=== PATIENT | female | born 1985 | race Caucasian/White ===

== ENCOUNTER 2023-11-02 07:16 | Outpatient (REF) | payer OTHER, SELFPAY ==
[2023-11-02 07:48] LABS: Basophils Percent Auto 0.5 % (0-2); Eosinophils Absolute Auto 0.1 X10*3/uL (0.0-0.4); Eosinophils Percent Auto 1.6 % (0-4); Hematocrit 41.2 % (37.0-47.0); Hemoglobin 13.7 g/dl (12.0-16.0); Imm Gran Abs Auto 0.02 X10*3/uL (0.00-0.03); Imm Gran Pct Auto 0.2 % (0.0-0.4); Lymphocytes Absolute Auto 2.2 X10*3/uL (1.2-4.9); Lymphocytes Percent Auto 26.1 % (20-40); MANUAL DIFF FLAG NO; Mean Corpuscular HGB Conc 33.3 g/dl (31.0-35.0); Mean Corpuscular Hemoglobin 30.6 pg (27.0-33.0); Monocytes Absolute Auto 0.6 X10*3/uL (0.1-1.2); Monocytes Percent Auto 6.5 % (2-11); Neutrophils Absolute Auto 5.5 x10*3/uL (2.0-8.3); Neutrophils Percent Auto 65.1 % (45-73); Platelet Count 248 X10*3/uL (160-400); Red Blood Count 4.48 X10*6/uL (4.20-5.50); Red Cell Distribution Width 12.7 % (11.0-16.0); White Blood Count 8.5 X10*3/uL (4.8-10.8)
[2023-11-02 08:10] LABS: Estimated Average Glucose 108 mg/dL; Hemoglobin A1c % 5.4 % (<6.0)
[2023-11-02 08:19] LABS: Alanine Aminotransferase 12 U/L (0-31); Albumin Level 4.3 g/dL (3.5-5.0); Alkaline Phosphatase 75 U/L (39-117); Anion Gap 12 (12-20); Aspartate Amino Transferase 18 U/L (5-31); Bilirubin Total 0.5 mg/dL (0.0-1.0); Blood Urea Nitrogen 9 mg/dL (9-16); C Reactive Protein 0.29 mg/dL (< or = 0.50); Calcium 9.5 mg/dL (8.4-10.2); Carbon Dioxide 30 mmol/L (22-29); Chloride 104 mmol/L (96-108); Cholesterol 125 mg/dL (<200); Estimated Glomerular Filt Rate > 60; Glucose Random 83 mg/dL (60-115); HDL Cholesterol 67 mg/dL (>40); Iron 86 mcg/dL (30-160); LDL Cholesterol Calculated 54 mg/dL (<100); Magnesium 1.8 mg/dL (1.6-2.6); Percent Iron Saturation 29 % (15-50); Potassium 3.5 mmol/L (3.3-5.1); Sodium 142 mmol/L (135-145); Total Iron Binding Capacity 300 mcg/dL (228-428); Total Protein 7.3 g/dL (6.5-8.0); Triglycerides 22 mg/dL (<150); Unsaturated Iron Binding 214 ug/dL; Uric Acid 5.3 mg/dL (2.4-5.7)
[2023-11-02 08:27] LABS: Erythrocyte Sedimentation Rate 9 MM/HR (0-20)
[2023-11-02 08:34] LABS: Ferritin 46 ng/mL (10-122); Free T4 (Free Thyroxine) 0.77 ng/dL (0.71-1.85); Thyroid Stimulating Hormone 1.85 uIU/mL (0.32-4.0); Vitamin D 25-OH Total 39.2 ng/mL (>30)
[2023-11-02 08:45] LABS: Folate 4.3 ng/mL (> or = 4.0); Vitamin B12 195 pg/mL (200-900)
[2023-11-02 08:50] LABS: HBS Num1 8.99 mIU/mL (0-7.99); HBsAGNum1 0.23 S/CO (0.00-0.99); HIV AB/AG Nonreactive (Nonreactive); HIV Num 1 0.06 S/CO (0.00-0.99); Hepatitis A Antibody IgG Nonreactive (Nonreactive); Hepatitis B Core Antibody Nonreactive (Nonreactive); Hepatitis B Surface Antigen Negative (Negative); ~HepC Num1 0.08 S/CO (0.00-0.79); ~Hepatitis A Antibody IgG 0.52 S/CO (0.00-0.99); ~Hepatitis C Antibody Nonreactive (Nonreactive)
[2023-11-02 08:55] LABS: Syphilis Screen Reactive (Nonreactive)
[2023-11-02 12:07] LABS: HBS Num2 9.83 mIU/mL (0-7.99); HBS Num3 9.77 mIU/mL (0-7.99); ~Hepatitis B Surface Antibody GRAYZONE (Nonreactive)
[2023-11-02 17:45] LABS: CT PCR NOT DETECTED (Not Detect.); NG PCR NOT DETECTED (Not Detect.)
[2023-11-06 08:59] LABS: Lyme Abs Screen <0.90 index
[2023-11-06 17:57] LABS: Cytomegalovirus Ab IgG <0.60 U/mL; Cytomegalovirus Ab IgM <30.00 AU/mL
[2023-11-09 16:43] LABS: Vitamin B1 11 nmol/L (8-30)
== END 2023-11-02 07:17 | disposition home or self-care (01) ==
LOC: HO.LAB 07:16
PROVIDERS: PCP Internal Medicine; Visit Provider Psychiatry & Neurology Psychiatry
DX: F31.30 Bipolar disorder, current episode depressed, mild or moderate severity, unspecified (principal); M79.7 Fibromyalgia; M19.90 Unspecified osteoarthritis, unspecified site
CPT/HCPCS: 36415; 80053; 80061; 82306; 82607; 82728; 82746; 83036; 83540; 83735; 84425; 84439; 84443; 84550; 85025; 85652; 86140; 86592; 86617; 86618; 86644; 86645; 86704; 86706; 86708; 86780; 86803; 87340; 87389; 87491; 87591

== ENCOUNTER 2023-11-06 09:00 | Outpatient (RCR) | payer OTHER, SELFPAY ==
[2023-10-31 11:56] VITALS: BP 118/64; PULSE 58; RESP 18; TEMP 36.3; BMI 36.9
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
--- NOTE | 2023-11-01 08:31 | PC.NURSE ---
Spoke with Dania CALDERON on 11/01/23 at 0820 at [facility]/ Maintenance Methadone she reported Rekha is currently on 97 mg of methadone, she is given take home bottles, she last picked it up on 10/26/23. She should be back in the office on 11/02/23.
--- NOTE | 2023-11-01 15:11 | HO.PHP ---
Client's case has been opened and reviewed in treatment team.
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
--- NOTE | 2023-11-02 12:52 | PC.NURSE ---
Rekha approached program writer around 1247, reported feeling Tired, I've only slept two hours, she reports she has been nodding off in group, I'm too tired to stay awake. She stated I need to sleep, reports she has a two hour bus ride home, stated I'll be back Sunday. Rekha is A/O X4, speech and thought process appeared clear and logical, no safety concerns at this time.
--- NOTE | 2023-11-02 16:12 | PM.EVENT ---
Event Note Date of Service: 11/02/23 Time Spent With Patient Time: Total time managing care of this patient today ____ minutes.
--- NOTE | 2023-11-05 09:39 | HO.PHP ---
This t/w spoke with Rekha over the phone due to not being in program at 9 am. She stated she is in a lot of pain, and that she called staff to let them know. It appears we did not get a call, but she stated she will be in the program tomorrow. No safety concerns.
--- NOTE | 2023-11-06 11:30 | HO.PHPPROGNO ---
Subjective Subjective Date of Service: 11/06/23 Reason For Visit: PTSD,depression,anxiety Interim History: discussed with nursing; pt seen. pt reports back pain . will start anne blackburnda as she haad some trouble getting from pharmacy. no other changes; denies SI or HI. Medication Compliance: Yes Side effects from medications: No Attending Groups: Yes Review of Systems Acute medical concerns: No Mental Status Exam Mental Status Exam Patient Appearance: Appropriate Patient Orientation: Person, Place, Time and Situation Level of Consciousness: Awake Patient Behavior: Appropriate Mood Description: Anxious and Sad Affect Description: Anxious and Sad Patient Cognition Impaired: No Ability to Follow Directions: Good Speech Pattern: Clear and Appropriate Memory Description: Intact Hallucinations: None Delusions: Not Present Thought Process: Intact and Goal Oriented Thought Content: positive for Intact and positive for Goal Oriented Judgement: Fair Diagnostics Vital Signs (24Hr): BMI result Body Mass Index 36.9 Assessment & Plan Patient educated on: diagnosis, medication risk/benefits and therapeutic strategies Informed Consent: further education needed Reason for contiued partial hosp. stay Substantial Risk for: inability to function Certification I certify that partial hospital treatment is medically necessary due to the symptoms and problems resulting from the patient's mental illness and the failure to treat the patient at the partial hospital level of care would likely result in the patient requiring inpatient psychiatric care which could not be prevented at a less intensive level of care. Total time managing care of this patient today _25___ minutes. Discharge Plan Discharge Attending provider: Kati Torres Medications: New cariprazine 1.5 mg capsule 1.5 mg PO DAILY Qty: 30 0RF Continued gabapentin 800 mg tablet 800 mg PO QID albuterol sulfate [Ventolin HFA] 90 mcg/actuation HFA aerosol inhaler 1 puff INHALATION QID PRN (Reason: wheezing) topiramate 50 mg tablet 50 mg PO DAILY duloxetine 30 mg capsule,delayed release(DR/EC) 30 mg PO DAILY duloxetine 60 mg capsule,delayed release(DR/EC) 60 mg PO DAILY No Action methadone [Methadone Intensol] 10 mg/mL Concentrate 97 mg PO DAILY Patient Comments: Spoke with Dania CALDERON on 11/01/23 at 0820 at [facility]/ Maintenance Methadone she reported Rekha is currently on 97 mg of methadone, she is given take home bottles, she last picked it up on 10/26/23. She should be back in the office on 11/02/23. Print Language: Thai
== END 2023-11-06 23:59 | disposition home or self-care (01) ==
LOC: HO.PHPA 09:00
PROVIDERS: Visit Provider Psychiatry & Neurology Psychiatry
DX: F31.60 Bipolar disorder, current episode mixed, unspecified (principal); F41.3 Other mixed anxiety disorders; F43.10 Post-traumatic stress disorder, unspecified; F69 Unspecified disorder of adult personality and behavior; F12.90 Cannabis use, unspecified, uncomplicated; F11.20 Opioid dependence, uncomplicated; Z79.899 Other long term (current) drug therapy
CPT/HCPCS: 90791; 90853

== ENCOUNTER 2025-03-27 12:26 | Emergency (ER) | payer OTHER, SELFPAY ==
--- OUTSIDE RECORDS SUMMARY | 2024-02-12 10:30 | XMS_ITS ---
Author Organization [facility] Address [address] [place] [address] Care Team Providers Care Rubber Mill Tender Name Role Phone SHAUN AMARAL Unavailable [phone] REASON FOR VISIT Annual Exam Social History Sex Assigned At : Social History Observation Description Sex Assigned At Female Encounters Encounter Location Date Provider Diagnosis [facility] [address] [place] [address] [place] [id number] 02/12/2024 SHAUN AMARAL Plan Of Treatment No Information Progress Notes * Lazaro LUQUEaDOB:1985 (39 yo F)Acc No.[id number]:02/12/2024 Progress Notes Patient: Rekha Lockett Provider: Fish Amaral NP :1985 A ge:38 Y S ex:Female Date:02/12/2024 Address:[address], [place], [id number] Subjective: * Chief Complaints: * A nnual Exam Billing Information: * Procedure Codes: * Electronic signature of VEENA AMARAL NP on 03/27/2025 at 02:32 PM EST Sign off status: Pending * Provider: Fish Amaral NP Date: Generated for Sumii jasmyne/Kat/eTransmitting on: 05/27/2024 02:32 PM EST
--- OUTSIDE RECORDS SUMMARY | 2024-05-29 07:45 | XMS_ITS ---
Author Organization [facility] Address [address] [place] [address] Care Team Providers Care Urban Forester Name Role Phone JUN GROSS Unavailable [phone] REASON FOR VISIT Counseling/Testing Social History Sex Assigned At : Social History Observation Description Sex Assigned At Female Encounters Encounter Location Date Provider Diagnosis [facility] [address] [place] [address] [place] [id number] 05/29/2024 JUN GROSS Plan Of Treatment No Information Progress Notes * ENE LazaroaDOB:1985 (39 yo F)Acc No.[id number]:05/29/2024 Progress Notes Patient: Rekha Lockett Provider: Jimmy GROSS :1985 A ge:38 Y S ex:Female Date:05/29/2024 Address:[address], [place], [id number] Subjective: * Chief Complaints: * C ounseling/Testing * Electronic signature of HUY GROSS CNM on 03/27/2025 at 02:32 PM EST Sign off status: Pending * Provider: Jimmy GROSS Date: 0 05/29/2024 Generated for Teddy medley/Kat/eTransmitting on: 05/27/2024 02:32 PM EST
--- OUTSIDE RECORDS SUMMARY | 2025-03-19 05:00 | XMS_ITS ---
Author Organization [facility] Address [address] [place] [address] Care Team Providers Care Health And Human Performance Professor Name Role Phone JUN GROSS Unavailable [phone] REASON FOR VISIT Annual Exam Social History Sex Assigned At : Social History Observation Description Sex Assigned At Female Encounters Encounter Location Date Provider Diagnosis [facility] [address] [place] [address] [place] [id number] 03/19/2025 JUN GROSS Plan Of Treatment No Information Progress Notes * Lazaro ASHFORDFlorindaB:1985 (39 yo F)Acc No.[id number]:03/19/2025 Progress Notes Patient: Rekha Lockett Provider: Jimmy GROSS :1985 A ge:39 Y S ex:Female Date:03/19/2025 Address:[address], [place], [id number] Subjective: * Chief Complaints: * A nnual Exam Billing Information: * Procedure Codes: * Electronic signature of HUY GROSS CNM on 03/27/2025 at 02:32 PM EST Sign off status: Pending * Provider: Jimmy GROSS Date: 05/19/2024 Generated for Teddy medley/Kat/James on: 05/27/2024 02:32 PM EST
--- NOTE | ~2025-03-27 | XR_ITS ---
EXAMINATION: XR CHEST CLINICAL INFORMATION: leg swelling. Pleural effussions? COMPARISON: None available. TECHNIQUE: Frontal view of the chest was obtained. FINDINGS: Cardiac size is within normal limits. There is no sign of pneumothorax. Pulmonary vessels are distinct. Density projecting over the bilateral lung bases is most consistent with breast tissue resulting in shadowing is Minimal retrocardiac density is evident. XR/XR chest 1V IMPRESSION: Minimal retrocardiac density is likely related to crowding of vessels and minimal atelectasis. Correlate for signs symptoms to rule out pneumonia. Electronically signed by: Maykel Celeste MD 03/27/2025 01:07 PM [facility]
--- NOTE | ~2025-03-27 | US_ITS ---
EXAMINATION: US TRIPLEX LOWER EXTREMITY, BILATERAL CLINICAL INFORMATION: Edema, lower extremities. COMPARISON: None available. TECHNIQUE: Color-flow triplex imaging with spectral analysis and compression Doppler were performed on the bilateral lower extremities. FINDINGS: Respiratory variation, normal compression and augmented flow are demonstrated in the interrogated common femoral vein, superficial femoral vein, profunda femoral vein, popliteal vein and midcalf peroneal and posterior tibial venous segments of the lower extremities. There is no Pa's cyst. Edema pattern, soft tissues. No fluid collections. US/US venous duplex LE BI IMPRESSION: No acute deep venous thrombosis interrogated veins of the lower extremities. Negative for DVT.. Electronically signed by: Oswaldo Aguila MD 03/27/2025 01:54 PM [facility]
[2025-03-27 12:40] VITALS: BP 110/68; PULSE 59; RESP 18; TEMP 36.3; O2SAT 96; BMI 23.9
--- NOTE | 2025-03-27 12:55 | ED_ITS ---
HPI - General Adult General Chief complaint: Extremity Problem Stated complaint: Knee Leg Pain Time Seen by Provider: 03/27/25 13:49 Source: patient and old records reviewed Mode of arrival: ambulatory Limitations: no limitations History of Present Illness ED Provider: LINDSEY JERRY narrative: 39-year-old female with past medical history of anxiety, opiate use disorder well-maintained on methadone, PTSD, diabetes, bipolar. She comes in with complaint of bilateral knee swelling x1 week. She has not moved around a lot more but she denies any rash, no significant pain. She does have prior MCL injury to the right knee. She does have spider veins and some small varicose veins as well but that is not new. She was not sure if this was gout as she has had it before though it does appear slightly different. She has never used compression stockings or diuretics. She has not report any chest pain or trouble breathing MD complaint: Leg swelling Onset (ago): week(s) (1) Location: left, right and lower extremity Radiation: non-radiation Severity: mild Quality: aching Pain Consistency: intermittent Relieving factors: none Exacerbating factors: none Associated symptoms: denies other symptoms Treatments prior to arrival: none Related Data Home Medications ?Medication ?Instructions ?Recorded ?Confirmed albuterol sulfate 90 mcg/actuation 1 puff inhalation Q ID PRN wheezing 10/31/23 10/31/23 aerosol inhaler (Ventolin HFA) duloxetine 30 mg capsule,delayed 30 mg PO DAILY 10/31/23 release duloxetine 60 mg capsule,delayed 60 mg PO DAILY 10/31/23 release gabapentin 800 mg tablet 800 mg PO QID 10/31/2310/30 methadone 10 mg/mL oral 97 mg PO DAILY 10/31/2310/06 concentrate (Methadone Intensol) topiramate 50 mg tablet 50 mg PO DAILY 10/31/2310/06 Previous Rx's ?Medication ?Instructions ?Recorded cariprazine 1.5 mg capsule 1.5 mg PO DAILY #30 caps compr.stocking,knee,long,x-lrg #24 ea 03/27/25 compression socks, x-large (Daily #2 ea 03/27/25 Comfort Socks X-Large) Allergies Allergy/AdvReac Type Severity Reaction Status Date / Time acetaminophen (From PERCOCET) Allergy Unknown PT Verified 03/27/25 12:43 REQUESTED, DOES NOT WANT THIS MEDICATION codeine (CODEINE) Allergy Unknown HIVES Verified 03/27/25 12:43 hydroxyzine (From VISTARIL) Allergy Unknown INVOLUNTARY Verified 03/27/25 12:43 MOVEMENTS oxycodone (From PERCOCET) Allergy Unknown PT Verified 03/27/25 12:43 REQUESTED, DOES NOT WANT THIS MEDICATION prednisone (PREDNISONE) Allergy Unknown SI Verified 03/27/25 12:43 prazosin (PRAZOSIN) AdvReac Intermediate auditory Verified 03/27/25 12:43 perceptual alterations reported Benzodiazepines AdvReac Unknown BAD Verified 03/27/25 12:43 (BENZODIAZEPINES) WITHDRAWL Review of Systems 2 Review of Systems: Yes all other systems are reviewed and are negative [facility] Past Medical History Attestation statement: The following information was validated with the patient. Source: old records reviewed Medical History History of vitamin D deficiency Methadone maintenance therapy patient Gout History of type 2 diabetes mellitus Herniated disc, cervical Asthma Sciatica Arthritis Surgical History History of salpingectomy History of cholecystectomy History of Social History Social History Household Members: Other Household Members Other:: My dog Patient Tobacco Use Status: Current everyday Tobacco user Tobacco use type: Cigarette Cigarette Packs Per Day: 2 Years Smoked: Many' Advance Directives: No Advance Directives Information Provided: Yes Physical Exam ED Vital Signs: Vital Signs - 24 hr 03/27/25 12:40 03/27/25 14:32 Temperature 97.4 F Pulse Rate 59 59 Respiratory Rate 18 18 Blood Pressure 110/68 Pulse Oximetry 96 Oxygen Delivery Method Room Air BMI result Body Mass Index 23.9 Appearance: Alert. Oriented X3. No acute distress. Eyes: Pupils equal, round and reactive to light. ENT: Pharynx normal. Neck: Normal inspection. Neck supple. CVS: Normal heart rate and rhythm. Pulses normal. Respiratory: No respiratory distress. Breath sounds normal. Abdomen: Soft and nontender. Skin: Skin warm and dry. Normal skin color. Extremities: She does have boggy areas near the upper anterior lower leg as well as suprapatellar but there is no joint effusion, no rash, no pain to palpation, no crepitus her pulses are intact distally she has not no pitting edema whatsoever Neuro: Oriented X 3. No motor deficit. No sensory deficit. Course Course Course Narrative: RME: 39 yold female presents to the ED for bilateral leg swelling with pain. Patient states no recent travel or recent surgery. positive for bilateral leg swelling. labs US ordered Medications Administered Discontinued Medications Generic Name Dose Route Start Last Admin Trade Name Matias PRN Reason Stop Dose Admin Albuterol Sulfate 2 puff 03/27/25 14:09 03/27/25 14:30 Albuterol Sulfate 90 Mcg 8 Gm Inhaler INHALE 03/27/25 14:10 2 puff ONCE ONE Administration Medical Decision Making Medical Decision Making [facility] Narrative: 39-year-old female with past medical history of anxiety, opiate use disorder well-maintained on methadone, PTSD, diabetes, bipolar who presents with complaint of leg edema x1 week she has no reported chest pain or shortness of breath on exam there is no signs of infection, she appears to have some spider veins and small varicose veins I am wondering if this is actually venous insufficiency versus subcutaneous tissue. There is no pitting edema. She has no redness or severe pain to suggest gout. I am going to obtain EKG, chest x- ray, thyroid panel, BNP, DVT study. If negative we will DC out on compression stockings as well as vascular outpatient. She also has scant wheezing and has a known history of asthma she has no URI symptoms Differential Diagnosis Differential Diagnoses: The differential diagnosis associated with the presentation includes Edema, subcutaneous tissue, venous insufficiency Admission/Observation Consideration of admission/observation: Escalation of care including admission/observation considered Her labs are reassuring there is no signs of infection, there is no signs of DVT, we will start on compression stockings and refer to vascular surgeon case this is venous insufficiency given the other vascular findings on exam Lab Data [facility] Lab Attestation statement: I reviewed the patient's lab results. 03/27/25 12:57 03/27/25 12:57 Labs: Lab Results 03/27/25 Range/Units 12:57 WBC 8.1 (4.8-10.8) X10*3/uL RBC 3.90 L (4.20-5.50) X10*6/uL Hgb 11.8 L (12.0-16.0) g/dl Hct 37.0 (37.0-47.0) % MCV 94.9 (80.0-98.0) fL MCH 30.3 (27.0-33.0) pg MCHC 31.9 (31.0-35.0) g/dl RDW 13.4 (11.0-16.0) % Plt Count 248 (160-400) X10*3/uL MPV 8.3 L (9.4-12.3) fL Immature Gran % (Auto) 0.2 (0.0-0.4) % Neut % (Auto) 52.3 (45-73) % Lymph % (Auto) 36.0 (20-40) % Shannon % (Auto) 6.1 (2-11) % Eos % (Auto) 4.8 H (0-4) % Baso % (Auto) 0.6 (0-2) % Lymph # (Auto) 2.9 (1.2-4.9) X10*3/uL Shannon # (Auto) 0.5 (0.1-1.2) X10*3/uL Eos # (Auto) 0.4 (0.0-0.4) X10*3/uL Baso # (Auto) 0.1 (0.0-0.2) X10*3/uL Abs Immat Gran (auto) 0.02 (0.00-0.03) X10*3/uL Absolute Neuts (auto) 4.2 (2.0-8.3) x10*3/uL Absolute Nucleated RBC 0.000 (0.0-0.012) X10*3/uL Nucleated RBC % (auto) 0.0 (0.0-0.2) /100WBC PT 11.5 (11.2-13.5) SEC INR 0.9 (0.9-1.1) APTT 29.0 (26.7-34.1) SEC Sodium 143 (135-145) mmol/L Potassium 4.5 D (3.3-5.1) mmol/L Chloride 106 (96-108) mmol/L Carbon Dioxide 33 H (22-29) mmol/L Anion Gap 9 L (12-20) BUN 9 (9-16) mg/dL Creatinine 0.61 (0.5-1.4) mg/dL Estim Creat Clear Calc 129.4 Estimated GFR > 60 Random Glucose 125 H (60-115) mg/dL Calcium 8.5 D (8.4-10.2) mg/dL Total Bilirubin 0.2 (0.0-1.0) mg/dL AST 32 H (5-31) U/L ALT 26 (0-31) U/L Alkaline Phosphatase 66 (39-117) U/L NT-Pro-B Natriuret Pep 226.0 (<300) pg/mL Total Protein 6.8 (6.5-8.0) g/dL Albumin 4.2 (3.5-5.0) g/dL TSH 2.69 (0.32-4.0) uIU/mL Independent Interpretation I performed an independent interpretation of an: EKG, Plain X-Ray (No CHF) and Ultrasound (No DVT) Interpretation: Rate: 55 Rhythm: Sinus bradycardia Clemons: Normal Normal P waves. Normal SAI. Normal QRS complex. ST T wave : Inverted T-wave in lead V1 but otherwise no ST-elevation qTC: 464 prior studies: No acute ischemia The study has been interpreted contemporaneously by me. . External Record Review External record reviewed: Outpatient record Prescription Management I considered prescription management with: Other Discharge Plan Discharge Clinical Impression: Lower extremity edema Patient Disposition: Home, Self-Care Instructions: Leg Edema (ED) Additional Instructions: Your congestive heart failure labs and kidney function are normal Your blood clot study was negative Your chest x-ray did not show any signs of volume overload, your labs do not show suggest any infectious process Your thyroid test was normal Please follow-up with vascular surgery as discussed as it is unclear given the other findings on your legs such as varicose veins and spider veins that this could actually be venous insufficiency Return for any worsening symptoms or concerns Use the albuterol inhaler as needed for shortness of breath and wheezing Your thyroid test was also normal Prescriptions: New (DME) compr.stocking,knee,long,x-lrg Misc 1 ea miscellaneous DAILY Qty: 24 0RF (DME) compression socks, x-large [Daily Comfort Socks X-Large] Misc See Rx Instructions .Route Qty: 2 0RF Rx Instructions: As directed No Action gabapentin 800 mg tablet 800 mg PO QID albuterol sulfate [Ventolin HFA] 90 mcg/actuation HFA aerosol inhaler 1 puff INHALATION QID PRN (Reason: wheezing) topiramate 50 mg tablet 50 mg PO DAILY duloxetine 30 mg capsule,delayed release(DR/EC) 30 mg PO DAILY duloxetine 60 mg capsule,delayed release(DR/EC) 60 mg PO DAILY methadone [Methadone Intensol] 10 mg/mL Concentrate 97 mg PO DAILY Patient Comments: Spoke with Dania CALDERON on 11/01/23 at 0820 at [facility] [place]/ Maintenance Methadone she reported Rekha is currently on 97 mg of methadone, she is given take home bottles, she last picked it up on 10/26/23. She should be back in the office on 11/02/23. cariprazine 1.5 mg capsule 1.5 mg PO DAILY Qty: 30 0RF Referrals: [facility] [Provider Group, Urology] Interventions: ED Discharge Assessment Last Done: 03/27/25 15:10 Discharge Date/Time: 03/27/25 15:10 Print Language: Zimbabwean
--- NOTE | 2025-03-27 12:56 | ECG_ITS ---
Test Reason : leg swelling Blood Pressure : */* mmHG Vent. Rate : 55 BPM Atrial Rate : 55 BPM P-R Int : 96 ms QRS Dur : 94 ms QT Int : 486 ms P-R-T Axes : -10 35 30 degrees QTcB Int : 464 ms Sinus bradycardia with short W[place] Otherwise normal ECG When compared with ECG of 22-Aug-2019 14:33, Vent. rate has decreased by 30 bpm Referred By: Armando Lorenzo Electronically Signed By: WILNER MYERS
[2025-03-27 13:01] LABS: MANUAL DIFF FLAG NO
[2025-03-27 13:04] LABS: Hematocrit 37.0 % (37.0-47.0); Hemoglobin 11.8 g/dl (12.0-16.0); Imm Gran Abs Auto 0.02 X10*3/uL (0.00-0.03); Imm Gran Pct Auto 0.2 % (0.0-0.4); Lymphocytes Absolute Auto 2.9 X10*3/uL (1.2-4.9); Mean Corpuscular HGB Conc 31.9 g/dl (31.0-35.0); Mean Corpuscular Hemoglobin 30.3 pg (27.0-33.0); Mean Corpuscular Volume 94.9 fL (80.0-98.0); NRBC Abs Auto 0.000 X10*3/uL (0.0-0.012); NRBC Pct Auto 0.0 /100WBC (0.0-0.2); Platelet Count 248 X10*3/uL (160-400); Red Blood Count 3.90 X10*6/uL (4.20-5.50); White Blood Count 8.1 X10*3/uL (4.8-10.8)
[2025-03-27 13:13] LABS: INTERNATIONAL NORM RATIO 0.9 (0.9-1.1); Prothrombin Time 11.5 SEC (11.2-13.5)
[2025-03-27 13:16] LABS: Partial Thromboplastin Time 29.0 SEC (26.7-34.1)
[2025-03-27 13:27] LABS: Alanine Aminotransferase 26 U/L (0-31); Albumin Level 4.2 g/dL (3.5-5.0); Alkaline Phosphatase 66 U/L (39-117); Anion Gap 9 (12-20); Aspartate Amino Transferase 32 U/L (5-31); Blood Urea Nitrogen 9 mg/dL (9-16); Calcium 8.5 mg/dL (8.4-10.2); Carbon Dioxide 33 mmol/L (22-29); Chloride 106 mmol/L (96-108); Creatinine Clr Calc Pharmacy 129.4; Estimated Glomerular Filt Rate > 60; Potassium 4.5 mmol/L (3.3-5.1); Sodium 143 mmol/L (135-145); Total Protein 6.8 g/dL (6.5-8.0)
[2025-03-27 13:34] LABS: NT Pro B Type Natriuretic Pept 226.0 pg/mL (<300)
[2025-03-27] MEDS: Albuterol Sulfate 90 MCG 8 GM INHALER 2 PUFF INHALE (14:30)
[2025-03-27 14:32] VITALS: PULSE 59; RESP 18; O2SAT 98
--- OUTSIDE RECORDS SUMMARY | 2025-03-27 14:33 | XMS_ITS | Patient Health Record ---
Author Organization [facility] Address [address] [place] [address] Care Team Providers Care Wardrobe Image Consultant Name Role Phone JUN GROSS Unavailable [phone] Allergies Allergen (clinical drug ingredient) Drug/Non Drug Allergy documented on EMR Reaction Allergy Type Onset Date Status hydroxyzine Vistaril Unknown Drug Allergy Activ e benzodiazepine (FN) Benzodiazepines Unknown Drug Allergy Active codeine Codeine Unknown Drug Allergy Active prednisolone Prednisolone Unknown Drug Allergy A ctive Results Component Value Reference Range Flag Notes Ct/GC MIO, Pharyngeal-[id number] Reviewed date:02/11/2025 09:19:21 AM Interpretation: Negative Performing Lab:[facility] [place], [address], [address], [employer], Phone - [phone], Director - [facility] Notes/Report: Clinical Information:SRC:urine C. trachomatis, MIO, Pharyn Negative Negative N. gonorrhoeae, MIO, Pharyn Negative Negative HIV Ab/p24 Ag with Reflex-[id number] Reviewed date:02/06/2025 02:17:46 PM Interpretation: Negative Performing Lab:[facility] [place], [address], [address], [employer], Phone - [phone], Director - [facility] Notes/Report: Clinical Information:SRC:urine HIV Ab/p24 Ag Screen Non Reactive Non Reactive HIV-1/HIV-2 antibodies and HIV-1 p24 antigen were NOT detected. There is no laboratory evidence of HIV infection. HIV Negative HBsAg Screen-[id number] Reviewed date:02/06/2025 02:17:46 PM Interpretation: Negative Performing Lab:[facility] [place], [address], [address], [employer], Phone - [phone], Director - [facility] Notes/Report: Clinical Information:SRC:urine HBsAg Screen Negative Negative Ct/GC MIO, Rectal-[id number] Reviewed date:02/11/2025 09:19:21 AM Interpretation: Negative Performing Lab:[facility] [place], [address], [address], [employer], Phone - [phone], Director - [facility] Notes/Report: Clinical Information:SRC:urine C. trachomatis, MIO, Rectal Negative Negative N. gonorrhoeae, MIO, Rectal Negative Negative Ct, Ng, Trich vag by MIO-[id number] Reviewed date:02/11/2025 09:19:21 AM Interpretation: Negative Performing Lab:[facility] [place], [address], [address], [employer], Phone - [phone], Director - [facility] Notes/Report: Clinical Information:SRC:urine Chlamydia by MIO Negative Negative Gonococcus by MIO Negative Negative Trich vag by MIO Negative Negative HCV Antibody RFX to Quant PC [id number] Reviewed date:02/06/2025 02:17:46 PM Interpretation: Negative Performing Lab:[facility] [place], [address], [address], [employer], Phone - [phone], Director - [facility] Notes/Report: Clinical Information:SRC:urine Clinical Information:SRC:urine HCV Ab Non Reactive Non Reactive Interpretation: Not infected with HCV unless early or acute infection is suspected (which may be delayed in an immunocompromised individual), or other evidence exists to indicate HCV infection. T pallidum Screening [place] -[id number] Reviewed date:02/06/2025 02:18:26 PM Interpretation:RPR 1:1, Historic treatment Performing Lab:[facility] [place], [address], [address], [place], Phone - [phone], Director - [facility] Notes/Report: Clinical Information:SRC:urine Clinical Information:SRC:urine Clinical Information:SRC:urine T pallidum Antibodies Reactive Non Reactive A RPR Reactive Non Reactive A RPR, Quant 1:1 NonRea<1:1 titer H Hep B Core Ab, Tot-[id number] Reviewed date:02/06/2025 02:17:46 PM Interpretation: Negative Performing Lab:[facility] [place], [address], [address], [place], Phone - [phone], Director - [facility] Notes/Report: Clinical Information:SRC:urine Hep B Core Ab, Tot Negative Negative Hepatitis B Surf Ab Quant-[id number] Reviewed date:02/06/2025 02:17:46 PM Interpretation:Immune Performing Lab:[facility] [place], [address], [address], [place], Phone - [phone], Director - [facility] Notes/Report: Clinical Information:SRC:urine Hepatitis B Surf Ab Quant 10.7 Immunity>10 mIU/mL Status of Immunity Anti-HBs Level Inconsistent with Immunity 0.0 - 10.0 Consistent with Immunity >10.0 Reason For Referral No Information Medications Medication SIG (Take, Route, Fr equency, Duration) Notes Start Date End Date Status Gabapentin Active Methadone HCl Active Topamax Not-Taking /PRN DULoxetine HCl Activ e Social History Sex Assigned At : Social History Observation Description Sex Assigned At Female Social History HIV Risk Assessment Social Info Question Answer Notes Additional Questions Is an HIV Risk Assessment being c onducted? Yes Have you been tested for HIV before? Yes Did you have a blood transfusion prior to 1985? No Do you have an unlicensed body piercing or tattoo? Yes Reproductive Life Plan: Social Info Question Answer Notes Reproductive Life Plan: Do you want to h ave children? No, I don't want to have children How sure are you that you will be able to use your control method without any problems? Very sure People's plans change. Is it possible you or your partner could ever decide to become ? No Human Trafficking: Social Info Question Answer Notes Human Trafficking Experienced: No PrEP for HIV: Social Info Question Answer Notes PrEP for HIV Is the client angelina cho in beginning/continuing PrEP for HIV? No Sexual History: Social Info Question Answer Notes Sexual History: Sexual History Reviewed: Partner s, Practices, Protection/Past STIs, Prevention of Currently sexually active? Yes Sexually active with: Men Number of male partners 1 Your sexual activities include: oral intercourse, vaginal intercourse Reviewed types of EC? No Do you use condoms? No Date of last unprotected intercourse: 02/04/2025 Number of partners in past 3 months: 1 Number of partners in past year: 3 What is the client's primary method to prevent at the end of their visit? Sterilization Does your partner(s) currently have any STIs? No Completed Gardasil vaccination series? No Counseling Provided: Social Info Question Answer Notes Counseling Provided Please indicate the length of time, in minutes, that counseling was provided. 8 Counseling Was Provided By: sherri Drugs/Alcohol: Social Info Question Answer Notes Drug/Alcohol Use Do you or have you used drugs? Yes, c urrently By what route are you taking drugs? Please check all that apply: Smoking Which drug(s) do you smoke? Marijuana When did you last use? Do you want to quit drugs? No Do you or have you used alcohol? No Food Access: Social Info Question Answer Notes Food Access The Client's current access to food is Secure Food Access Relationships: Social Info Question Answer Notes Relationships Has the client exper ienced any of the following: Client has never experienced harmful relationships Housing Social Info Question Answer Notes Housing The client's current living situation is: stable housing Tobacco Use: Social Info Question Answer Notes Tobacco Use: Do you/have you used tobacco? Yes, currently cigarette use Tobacco Smoking Status Current every day smoker Vital Signs Blood pressure diastolic 80 mm Hg 02/05/2025 Height 5'9 in 02/05/2025 Blood pressure systolic 120 mm Hg 02/05/2025 Weight 279.5 lbs 02/05/2025 BMI 41.27 kg/m2 02/05/2025 Encounters Encounter Location Date Provider Diagnosis [facility] [address] [place] [address] [place], [place] [id number] 02/05/2025 JUN GROSS Encounter for screen ing for infections with a predominantly sexual mode of transmission Z11.3 ; Counseling, unspecified Z71.9 ; Other problems related to lifestyle Z72.89 ; Encounter for screening for human immunodeficiency virus [HIV] Z11.4 and Screening for other viral diseases Z11.59 Assessments Encounter Date Diagnosis (ICD Code) Assessment Notes Treatment Notes Treatment Clinical Notes Section Notes 02/05/2025 Encounter for screening for infections with a predominantly sexual mode of transmission (ICD-10 - Z11.3) Discussed STI risks, screenings that are available through [facility] and safe sex. Clt aware of lab processing times and how to view results on portal and how positive results will be communicated Need 2 out of 3 Sections from A-C Section A) Problems (only need one from below) One acute or uncomplicated illness/injury Section B) Data (at least one of the following categories in this section) Category 1: (Choose 2 of the following): Order unique tests Section C) Risk Document low risk of morbidity/morta lity 02/05/2025 Counseling, unspecified (ICD-10 - Z71.9) Need 2 out of 3 Sections from A-C Section A) Problems (only need one from below) One acute or uncomplicated illness/injury Section B) Data (at least one of the following categories in this section) Category 1: (Choose 2 of the following): Order unique tests Section C) Risk Document low risk of morbidity/morta lity 02/05/2025 Other problems related to lifestyle (ICD-10 - Z72.89) Need 2 out of 3 Sections from A-C Section A) Problems (only need one from below) One acute or uncomplicated illness/injury Section B) Data (at least one of the following categories in this section) Category 1: (Choose 2 of the following): Order unique tests Section C) Risk Document low risk of morbidity/morta lity 02/05/2025 Encounter for screening for human immunodeficiency virus [HIV] (ICD-10 - Z11.4) Need 2 out of 3 Sections from A-C Section A) Problems (only need one from below) One acute or uncomplicated illness/injury Section B) Data (at least one of the following categories in this section) Category 1: (Choose 2 of the following): Order unique tests Section C) Risk Document low risk of morbidity/morta lity 02/05/2025 Screening for other viral diseases (ICD-10 - Z11.59) Need 2 out of 3 Sections from A-C Section A) Problems (only need one from below) One acute or uncomplicated illness/injury Section B) Data (at least one of the following categories in this section) Category 1: (Choose 2 of the following): Order unique tests Section C) Risk Document low risk of morbidity/morta lity Plan Of Treatment No Information Insurance Providers Payer Name Payer Address Payer Phone Subscriber Number Group Number Insured Name Patient Relationship to Insured Coverage Start Date Coverage End Date [facility] [employer] [address] [address] [place], [place] [id number] Rekha Ashford Self - patient is the insured Medical (General) History Medical History History ICD Code Diabetes Weight concerns Vaginal infections Abnormal Pap < 20 years ago Migraines/severe headaches Asthma Gall bladder problems Mental health concerns Depression/anxiety History of RPR, treated 05/2023. RPR 1:64 per [facility] Surgical History Surgery Date(Month/Year) section bilateral tubal ligation Hospitalization History Reason Date(Month/Year) childbirth
[2025-03-27 15:10] VITALS: BP 112/54; PULSE 50; RESP 18; TEMP 36.4; O2SAT 98
== END 2025-03-27 15:10 | disposition home or self-care (01) ==
PROVIDERS: Physician Assistant; Emergency Provider Emergency Medicine
DX: R60.0 Localized edema (principal); R06.02 Shortness of breath; M25.562 Pain in left knee; M25.561 Pain in right knee; R00.1 Bradycardia, unspecified; Z79.899 Other long term (current) drug therapy
CPT/HCPCS: 36415; 71045; 80053; 83880; 84443; 85025; 85610; 85730; 93005; 93970; 94640; 94664; 99284

== ENCOUNTER → 2025-03-27 12:50 | Outpatient (BNV) | payer OTHER, SELFPAY | PROVIDERS: Emergency Provider Emergency Medicine; Visit Provider Radiology Diagnostic Radiology | DX: M79.89 Other specified soft tissue disorders (principal); R60.0 Localized edema; Z03.89 Encounter for observation for other suspected diseases and conditions ruled out | CPT/HCPCS: 71045; 93970 ==

== ENCOUNTER → 2025-03-27 12:56 | Outpatient (BNV) | payer OTHER, SELFPAY | PROVIDERS: Emergency Provider Emergency Medicine; Visit Provider Internal Medicine | DX: R00.1 Bradycardia, unspecified (principal) | CPT/HCPCS: 93010 ==